=== PATIENT | female | born 1990 | race Caucasian/White ===

== ENCOUNTER 2018-03-28 12:30 | Outpatient (REF) | payer MEDICARE, MEDICAID, SELFPAY ==
--- NOTE | 2018-03-28 11:00 | PAPFT_PTH ---
PATIENT: Rudi Romero LOC: [facility] U#:[id number] AGE/SX: 28/F ROOM: RE03/28/[address]: Mariah Ochoa : 1990 BED: DIS: 03/28/2018 SPEC #: [id number] RECD: 03/31/18 13:00 STATUS: MARIANA LORENZANA #: [id number] GWYN: 03/28/18 11:[address]: Mariah Wild DEPT: [facility] Cytology RECD BY: Carol Means ENTERED: 03/31/18 13:00 SP TYPE: PAPFT OTHR DR: Romario Arteaga Tissues: 1 - CX/ENDOCX FOR PAP SMEARS Procedures: PAP THIN PREP/[facility] Screening Comments: [id number]
== END 2018-03-28 12:31 ==
LOC: NCHCN 12:30
PROVIDERS: Visit Provider Nurse Practitioner Family
DX: Z12.4 Encounter for screening for malignant neoplasm of cervix (principal); Z00.00 Encounter for general adult medical examination without abnormal findings
CPT/HCPCS: 88142

== ENCOUNTER 2020-08-30 18:58 | Outpatient (REF) | payer MEDICARE, MEDICAID, SELFPAY ==
[2020-09-01 15:08] LABS: COVID-19 RT-PCR UVMMC Result Negative (Negative)
== END 2020-08-30 19:18 ==
LOC: NCHCN 18:58
PROVIDERS: Visit Provider Nurse Practitioner Family
DX: G44.89 Other headache syndrome (principal)
CPT/HCPCS: U0003

== ENCOUNTER 2022-06-22 15:13 | Outpatient (REF) | payer MEDICARE, MEDICAID, SELFPAY ==
[2022-06-22 16:18] LABS: Calculated LDL 157 mg/dL (<100); Cholesterol 234 mg/dL (<200); HDL Cholesterol 50 mg/dL (40-60); Triglyceride 139 mg/dL (<150)
== END 2022-06-22 15:14 | disposition home or self-care (01) ==
LOC: NCHCN 15:13
PROVIDERS: Visit Provider Nurse Practitioner Family
DX: E78.5 Hyperlipidemia, unspecified (principal)
CPT/HCPCS: 80061